=== PATIENT | female | born 1995 | race Caucasian/White ===

== ENCOUNTER → 2018-06-25 | Emergency (ER) | payer SELFPAY ==
[~2018-06-25] VITALS: Ht 165.1 cm; Wt 41.5 kg
--- OUTSIDE RECORDS SUMMARY | 2018-06-25 12:38 | XMS REPORT ---
[facility] Address Unknown Phone Unavailable Care Team Providers Care Police Cadet Name Role Phone Unavailable Unavailable Payers Payer Name Policy Type Policy Number Effective Date Expiration Date Problems This patient has no known problems. Allergies, Adverse Reactions, Alerts Allergy Name Allergy Type Status Severity Reaction(s) Onset Date Inactive Date Treating Clinician Comments pumpkin DA Active [place] 2017-11-07 00:00:00 pumpkin DA Active [place] 2017-04-21 00:00:00 Medications This patient has no known medications.
--- OUTSIDE RECORDS SUMMARY | 2018-06-25 12:38 | XMS REPORT | Clinical Summary ---
Author Author [facility] Organization [facility] Address Unknown Phone Unavailable Care Team Providers Care Cotton Grader Name Role Phone Yamel Sullivan MD PCP Allergies No Known Allergies Medications End Date Status Medication Sig Dispensed Refills Start Date Active ciprofloxacin (CIPRO) 500 Take 500 mg 0 MG tablet by mouth 2 (two) times a day. Active Problems Not on file Social History Date Tobacco Use Types Packs/Day Years Used Never Smoker Alcohol Use Drinks/Week oz/Week Comments No Sex Assigned at Date Recorded Not on file Industry Job Start Date Occupation Not on file Not on file Not on file Travel End Travel History Travel Start No recent travel history available. Last Filed Vital Signs Not on file Plan of Treatment Not on file Results Not on fileafter 06/24/2017 Advance Directives Patient has advance care planning documents on file. For more information, nydia haque contact: Bo Finn [address] [place] [address]
--- NOTE | 2018-06-25 15:50 | Diagnostic Imaging Report ---
Exam: Right knee series; 3 views dated 06/25/2018 History: Blunt trauma to the right knee Comparison: None available Findings: Bones are normally mineralized. No fracture or dislocation is identified. The soft tissues appear intact. Impression: No acute bony abnormality. Signed by: Dr. Primitivo Vaughan DO on 06/25/2018 3:47 PM
== END | disposition home or self-care (01) ==
LOC: FSED 12:35
DX: S89.91XA Unspecified injury of right lower leg, initial encounter (principal); W23.0XXA Caught, crushed, jammed, or pinched between moving objects, initial encounter; Z87.891 Personal history of nicotine dependence

== ENCOUNTER 2021-10-13 20:27 | Emergency (ER) | payer OTHER ==
[~2021-10-13] VITALS: Ht 165.1 cm; Wt 47.6 kg
[2021-10-13] MEDS ORDERED: AMOXICILLIN500 MG PO (21:00)
[2021-10-13] MEDS ORDERED: HYDROCODONE/APAP 5MG-325MG TAB PO ONE (21:00)
[2021-10-13] MEDS ORDERED: IBUPROFEN800 MG PO (21:01)
[2021-10-13] MEDS ORDERED: HYDROCODON-ACE1 EAC9 PO (21:03)
[2021-10-13] MEDS ORDERED: HYDROCODONE/APAP 5MG-325MG TAB ONE (21:08)
== END 2021-10-13 21:21 | disposition home or self-care (01) ==
LOC: FSED 20:38
DX: K08.89 Other specified disorders of teeth and supporting structures (principal); S02.5XXA Fracture of tooth (traumatic), initial encounter for closed fracture; G40.909 Epilepsy, unspecified, not intractable, without status epilepticus
CPT/HCPCS: 99283

== ENCOUNTER 2022-06-29 15:48 | Emergency (ER) | payer OTHER ==
[~2022-06-29 15:48] MED LIST: AMOXICILLIN500 MG PO; HYDROCODON-ACE1 EAC9 PO; IBUPROFEN800 MG PO
[2022-06-29] MEDS ORDERED: CYCLOBENZAPRINE5 MG PO (17:49)
[2022-06-29] MEDS ORDERED: MELOXICAM7.5 MG PO (17:49)
== END 2022-06-29 17:48 | disposition home or self-care (01) ==
LOC: FSED 15:54
DX: S00.83XA Contusion of other part of head, initial encounter (principal); M54.2 Cervicalgia; S33.5XXA Sprain of ligaments of lumbar spine, initial encounter; R51.9 Headache, unspecified; V43.52XA Car driver injured in collision with other type car in traffic accident, initial encounter; Y92.488 Other paved roadways as the place of occurrence of the external cause
CPT/HCPCS: 70450; 72040; 72100; 99283